=== PATIENT | male | born 2005 | race African-American/Black ===

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

== ENCOUNTER 2024-07-02 18:49 | Emergency (ER) | payer MEDICAID, OTHER ==
[~2024-07-02] VITALS: Ht 193 cm; Wt 82.7 kg
[2024-07-02 19:08] VITALS: TEMP 100.4
[2024-07-02 19:35] LABS: COVID AG,FIA SOURCE NASAL SWAB
[2024-07-02 20:10] VITALS: BP 102/56; PULSE 96; RESP 16; O2SAT 99
[2024-07-02] MEDS: ACETAMINOPHEN 500 MG TABLET PO ONE (20:14)
[2024-07-02 20:19] LABS: INFLUENZA TYPE A NEGATIVE FOR TYPE A (NEGATIVE); INFLUENZA TYPE B NEGATIVE FOR TYPE B (NEGATIVE)
[2024-07-02 20:24] LABS: SARS-COV2 (COVID) ANTIGEN,FIA Positive (Negative)
[2024-07-02] MEDS ORDERED: ACET-3385 PO (20:34)
[2024-07-02] MEDS ORDERED: IBUP-1492 PO (20:34)
== END 2024-07-02 21:04 | disposition home or self-care (01) ==
LOC: EMS 18:49
DX: U07.1 COVID-19 (principal); Z98.890 Other specified postprocedural states
CPT/HCPCS: 87804; 99283